=== PATIENT | female | born 1985 | race Caucasian/White ===

== ENCOUNTER 2017-05-14 18:47 | Emergency (ER) | payer MEDICAID ==
[~2017-05-14] VITALS: Ht 167.6 cm; Wt 64.0 kg
[2017-05-14] MEDS ORDERED: IBUPROFEN 600 MG TABLET PO ONE (22:00)
[2017-05-14 23:34] VITALS: BP 122/75
== END 2017-05-14 23:41 | disposition home or self-care (01) ==
LOC: EMS 19:05
DX: S20.211A Contusion of right front wall of thorax, initial encounter (principal); M25.561 Pain in right knee; Y04.0XXA Assault by unarmed brawl or fight, initial encounter; Y93.89 Activity, other specified; Y92.89 Other specified places as the place of occurrence of the external cause; Y99.2 Volunteer activity
CPT/HCPCS: 29530; 71020; 81025; 99284